=== PATIENT | female | born 1955 | race Caucasian/White ===

== ENCOUNTER 2022-09-26 16:57 | Observation (INO) | payer MEDICARE, BC, SELFPAY ==
--- NOTE | ~2022-09-26 | CT_ITS ---
EXAMINATION: CTA chest PE abdomen pel DATE: 09/26/2022 19:39 INDICATION: Localized chest pain. Lower abdominal pain. Abnormal liver enzymes. TECHNIQUE: Computed tomography (CT) pulmonary angiogram of the chest was performed with 100 mL Omnipa que-350 intravenous contrast. Additional 3D reconstructions utilizing coronal maximum intensity proje ction (MIP) were performed. CT of the abdomen and pelvis was performed with intravenous contrast util izing the same contrast bolus following a short delay. Automated exposure control and iterative recon struction technique were employed. The dose-length product was 430.32 mGy-cm. COMPARISON: None FINDINGS: Chest: Excellent contrast opacification of the pulmonary arteries. There is mild streak artifact from dense contrast in the superior vena cava and right atrium. Minimal scattered respiratory motion artifact wh ich does not significantly limit evaluation. No pulmonary embolism. Mild emphysema. There are regions of linear and thin bandlike consolidation with associated volume loss and architectural distortion i n the right upper, right middle and bilateral lower lobes most likely representing atelectasis/scarri ng. There is an additional small region of consolidation with adjacent groundglass opacities in the p osterolateral left upper lobe which is more suspicious for pneumonia. Alternatively this could repres ent the site of a reported small cell carcinoma of the left lung. There is a spiculated nodular opaci ty at the azygos esophageal recess of the right lower lobe for which differential would include malig nant, infectious or inflammatory etiologies. No pleural effusion. Heart size is normal. Atherosclerot ic coronary artery calcific lesion. Right internal jugular central venous catheter with distal tip ex tending to the superior cavoatrial junction. Thoracic aorta is normal in caliber with no dissection. No pathologically enlarged thoracic lymphadenopathy. Peripheral calcifications at bilateral breast im plants. Moderate thoracic spondylosis. No suspicious lytic or blastic bone lesions. Abdomen/pelvis: Cholecystectomy clips the gallbladder fossa. Liver, spleen, pancreas, bilateral adrenal glands are no rmal. There are small region of cortical thinning at both kidneys which could be related to prior inf ection or infarction. Bowels including the appendix are normal. Bladder is normal. The uterus is not identified and has likely been surgically resected. No free intraperitoneal gas or fluid. No patholog ically enlarged abdominal or pelvic lymphadenopathy. There is calcified atherosclerosis of the aorta and many of the other arteries. Mild lumbar spondylosis. No suspicious lytic or blastic bone lesions. IMPRESSION: 1. No pulmonary collision. 2. Mild emphysema with scattered bilateral lung disease, portions of which appear to represent atelec tasis but with additional region in the left upper lobe which is more concerning for pneumonia or pot entially representing the site of a reported treated lung cancer. 3. 1.5 cm spiculated nodule in the right lower lobe which could also be infectious, inflammatory or m alignant in etiology. Recommend correlation with any prior outside imaging. 4. No acute intra-abdominal/pelvic process. Reviewed, dictated and finalized at location A. IMPRESSION: 1. No pulmonary collision. 2. Mild emphysema with scattered bilateral lung disease, portions of which appe ar to represent atelectasis but with additional region in the left upper lobe w hich is more concerning for pneumonia or potentially representing the site of a reported treated lung cancer. 3. 1.5 cm spiculated nodule in the right lower lobe which could also be infecti ous, inflammatory or malignant in etiology. Recommend correlation with any prio r outside imaging. 4. No
--- NOTE | ~2022-09-26 | XR_ITS ---
EXAMINATION: XR chest 2V DATE: 09/26/2022 18:04 INDICATION: Chest pain TECHNIQUE: PA and lateral views of the chest were obtained. COMPARISON: Chest radiograph dated 12/27/2017 FINDINGS: Right internal jugular central venous port catheter with distal tip at the caudal superior vena cava. New linear opacities most likely representing discoid atelectasis in the right mid and left lower lion ng zones. More patchy airspace opacities in the right middle lobe also new since the prior study. No pulmonary edema, pleural effusion or pneumothorax. Heart size is normal. Peripherally calcified bilat eral breast implants. Cholecystectomy clips in the upper abdomen. IMPRESSION: 1. New patchy airspace opacities in the right middle lobe which could represent atelectasis or pneumo la nena. Reviewed, dictated and finalized at location A. IMPRESSION: 1. New patchy airspace opacities in the right middle lobe which could represent atelectasis or pneumonia.
--- NOTE | ~2022-09-26 | XR_ITS ---
EXAMINATION: XR chest 1V portable INDICATION: Shortness of breath TECHNIQUE: Portable AP chest at 0911 hours COMPARISON: 09/26/2022 FINDINGS: Airspace opacities of the right mid and lower lung zones persist with slight improvement. N o pleural effusion or pneumothorax. The cardiomediastinal silhouette is normal. A right internal jugu lar Port-A-Cath ends with its tip in the distal superior vena cava. Calcified bilateral breast implan ts are noted. Surgical clips in the right upper quadrant are likely from prior cholecystectomy. IMPRESSION: 1. Persistent but improving airspace opacities in the right mid and lower lung zones, likely infectio n/inflammation on a background of scarring/atelectasis. Reviewed, dictated and finalized at location A. IMPRESSION: 1. Persistent but improving airspace opacities in the right mid and lower lung zones, likely infection/inflammation on a background of scarring/atelectasis.
--- NOTE | 2022-09-26 16:59 | ECG_ITS ---
Measurements Intervals [place] Rate: 87 P: -79 OR: 89 QRS: 9 QRSD: 84 T: 47 QT: 370 QTc: 447 Interpretive Statements ECTOPIC ATRIAL RHYTHM FREQUENT ATRIAL PREMATURE COMPLEXES BASELINE ARTIFACT0 I, AVR, AVL, AVF, V1-V2 ABNORMAL ECG NO PREVIOUS ECG AVAILABLE FOR COMPARISON Electronically Signed On 09-26-2022 22:13:20 CDT by Cheko Mclean D.O.
--- NOTE | 2022-09-26 17:01 | ED.CHESTPAIN ---
HPI - Chest Pain General Chief Complaint: Chest Pain Stated Complaint: chest pain Time Seen by Provider: 09/26/22 17:00 Source: patient and family Mode of arrival: ambulatory Limitations: language barrier History of Present Illness HPI narrative: Patient is a 67 y/o female who presents to the ED with c/o CP. 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 Daughter at bedside assisted in providing patient's information. Patient is currently undergoing chemotherapy under Dr. Palma for small cell lung cancer of her left lung. She had a chemo treatment this morning which went as usual. She had outpatient labs drawn and received bad news about her liver enzymes being elevated. She is scheduled for a CT of her chest/abdomen/pelvis on 10/07. Patient was getting her nails done with her daughter approximately 1 hour ago when she began complaining of pain in her chest. Daughter reports she had difficulty ambulating to the car after their nail appointment and felt unsteady. They then decided to come to the ED. Patient is still currently having pain. She is unable to describe this pain or tell me if there is radiation of the pain. She does report having mild shortness of breath, but denies diaphoresis, nausea, vomiting. She does also report having pain across her lower abdomen. Denies fevers, cough, cold symptoms, lower extremity pain or swelling, focal weakness. Patient is on Eliquis due to history of atrial fibrillation and CVA. Related Data Home Medications Medication Instructions Recorded Confirmed albuterol sulfate 2.5 mg/3 mL 2.5 mg inhalation Q4H 07/31/22 09/26/22 (0.083 %) solution for nebulization apixaban 5 mg tablet (Eliquis) 5 mg PO BID 07/31/22 09/26/22 atorvastatin 80 mg tablet 80 mg PO DAILY 07/31/22 09/26/22 cyanocobalamin (vitamin B-12) 1,000 mcg PO DAILY 07/31/22 09/26/22 1,000 mcg tablet ferrous sulfate 325 mg (65 mg 325 mg PO DAILY 07/31/22 09/26/22 iron) tablet fluticasone propionate 50 1 spray intranasal DAILY PRN 07/31/22 09/26/22 mcg/actuation nasal Congestion spray,suspension folic acid 1 mg tablet 1 mg PO DAILY 07/31/22 09/26/22 metoprolol tartrate 25 mg tablet 25 mg PO BID 07/31/22 09/26/22 omeprazole 40 mg capsule,delayed 40 mg PO DAILY 07/31/22 09/26/22 release aspirin 81 mg capsule 81 mg PO DAILY 09/26/22 09/26/22 Allergies Allergy/AdvReac Type Severity Reaction Status Date / Time Penicillins AdvReac Unknown Nausea and Verified 09/26/22 23:42 Vomiting Review of Systems Review of Systems: CONSTITUTIONAL: Denies fever, chills, or sweats. ENT: Denies rhinorrhea, congestion, sore throat. CARDIOVASCULAR: See HPI. RESPIRATORY: See HPI. GASTROINTESTINAL: See HPI. GENITOURINARY: Denies dysuria or hematuria. SKIN: Denies rash or itching. MUSCULOSKELETAL: Denies back pain, joint pain, or myalgia. NEUROLOGIC: See HPI. All systems reviewed & are unremarkable except as noted in HPI and below PMFSH Past Medical History Medical History Atrial fibrillation CVA (cerebral vascular accident) GERD (gastroesophageal reflux disease) HTN (hypertension) Small cell lung cancer Surgical History Surgical History (Updated 09/26/22 @ 17:16 by Maria Guadalupe Ramirez PA-C) No pertinent past surgical history Social History Social History Smoking status: Former smoker Smoking end date: 05/11/22 Alcohol intake: never Substance use: never Lack of Transportation: No Lack of Food: Never True Current Housing: I Have Housing Concerned About Future Housing: No Difficulty Paying Gas/Electric Bills: No Difficulty Paying for Meds: No Currently Unemployed: No Education: Master's Degree or Higher Difficulty w/ Childcare or Family Care: No Spiritual care concerns: No Exam Narrative: GENERAL: Chronically ill, thin, non-toxic, in no acute distress. HEAD: Normocephalic, atraumatic. NECK: [place]
[2022-09-26 17:24] VITALS: BP 127/65; PULSE 82; RESP 18; TEMP 37.2; O2SAT 98
[2022-09-26 18:00] LABS: Basophils Absolute Auto 0.1 K/mm3 (0.0-0.1); Basophils Percent Auto 0.9 % (0.2-1.2); Eosinophils Absolute Auto 0.3 K/mm3 (0-0.3); Hematocrit 32.2 % (37.0-47.0); Hemoglobin 10.6 g/dL (12.0-15.0); Immature Granulocyte Absolute 0.18 K/mm3 (0.00-0.031); Immature Granulocyte Percent A 1.6 % (0-0.5); Lymphocytes Absolute Auto 0.94 K/mm3 (0.9-3.2); Lymphocytes Percent Auto 8.5 % (18.3-44.2); Mean Corpuscular HGB Conc 32.9 g/dl (32-36); Mean Corpuscular Hemoglobin 27.6 pg (26-34); Mean Corpuscular Volume 83.9 fl (80-100); Mean Platelet Volume 10.1 fl (7.4-10.4); Monocytes Absolute Auto 1.2 K/mm3 (0.1-0.6); Monocytes Percent Auto 10.6 % (2.6-8.5); Neutrophils Absolute Auto 8.3 K/mm3 (1.3-6.7); Neutrophils Percent Auto 75.4 % (45.5-73.1); Platelet Count Result 400 k/mm3 (150-375); Red Blood Count 3.84 M/mm3 (4.2-5.4); Red Cell Distribution Width 17.2 % (11.5-14.5)
[2022-09-26 18:10] LABS: INR 1.2; Prothrombin Time 16.3 Seconds (11.1-14.7)
[2022-09-26 18:11] LABS: Partial Thromboplastin Time 40.6 SECONDS (22.3-36.8)
[2022-09-26] MEDS: NITROGLYCERIN SL 0.4 MG TABLET SUBLINGUAL (18:13)
[2022-09-26] MEDS: ASPIRIN 81 MG CHEWABLE TABLET 324 MG PO (18:13)
[2022-09-26 18:22] LABS: Alanine Aminotransferase 470 U/L (6-35); Albumin Level 3.4 g/dL (3.5-5.1); Anion Gap 9 mmol/L (8-16); Bilirubin,Total 2.3 mg/dL (0.2-1.3); Blood Urea Nitrogen 13 mg/dL (7-17); Calcium 8.1 mg/dL (8.4-10.2); Carbon Dioxide 26 mmol/L (22-30); Chloride 100 mmol/L (98-107); Estimated Glomerular Filt Rate > 60; Glucose 109 mg/dL (65-110); Lipase 147 U/L (23-300); Potassium 3.1 mmol/L (3.4-5.0); Sodium 135 mmol/L (137-145)
[2022-09-26 18:27] LABS: Troponin I < 0.012 ng/mL (0.000-0.034)
[2022-09-26 19:11] LABS: Alkaline Phosphatase 1824 U/L (38-126); Aspartate Amino Transferase 759 U/L (14-36)
[2022-09-26 20:23] VITALS: BP 115/58; PULSE 84; RESP 25; O2SAT 100
[2022-09-26 20:27] LABS: Appearance Urine Clear (Clear); Bacteria Urine 1+ /hpf; Bilirubin Urine Negative (Negative); Blood Urine Negative (Negative); Color Urine Yellow (Yellow); Glucose Urine UA Negative (Negative); Ketones Urine Negative (Negative); Leukocyte Esterase Ur 2+ LEU/UL (Negative); Nitrate Urine Negative (Negative); Non Pathogenic Casts 0-2; Protein Urine Negative (Negative); RBC Urine 0-2 /hpf (0-2); Squamous Epithelial Cell Urine Moderate /hpf (Few); WBC Urine 21-50 /hpf; pH Urine 5.5 (5.0-9.0)
[2022-09-26 21:08] LABS: Specific Grav Ur 1.049 (1.001-1.035)
[2022-09-26 21:09] LABS: Add Urine Microscopic? YES
[2022-09-26 21:11] LABS: Troponin I < 0.012 ng/mL (0.000-0.034)
--- NOTE | 2022-09-26 21:14 | PM.IMHP ---
H&P: HPI History of Present Illness Date/Time: 09/26/22 21:14 Chief Complaint: Chest pain Narrative: This is a 67-year-old female with past medical history significant for small cell lung cancer, undergoing chemotherapy, stroke, aphasia, patient had chemotherapy treatment in the morning and had new onset chest pain was brought to the emergency room for evaluation where got nitroglycerin with relieve of pain. Most of the history was obtained from daughter who was at bedside and medical records of the time of my visit no family member was around patient is unable to give any meaningful history due to limitations secondary to aphasia. On outside lab work it was noted patient had abnormal liver function test as well. Preliminary workup was significant for urinalysis with numerous WBCs present, a CT angiogram of the chest showed area opacities. Patient has been admitted for further evaluation management and treatment. EXAMINATION: XR chest 2V DATE: 09/26/2022 18:04 INDICATION: Chest pain TECHNIQUE: PA and lateral views of the chest were obtained. COMPARISON: Chest radiograph dated 12/27/2017 FINDINGS: Right internal jugular central venous port catheter with distal tip at the caudal superior vena cava. New linear opacities most likely representing discoid atelectasis in the right mid and left lower lung zones. More patchy airspace opacities in the right middle lobe also new since the prior study. No pulmonary edema, pleural effusion or pneumothorax. Heart size is normal. Peripherally calcified bilateral breast implants. Cholecystectomy clips in the upper abdomen. IMPRESSION: 1. New patchy airspace opacities in the right middle lobe which could represent atelectasis or pneumonia. EXAMINATION: CTA chest PE abdomen pel DATE: 09/26/2022 19:39 INDICATION: Localized chest pain. Lower abdominal pain. Abnormal liver enzymes. TECHNIQUE: Computed tomography (CT) pulmonary angiogram of the chest was performed with 100 mL Omnipaque-350 intravenous contrast. Additional 3D reconstructions utilizing coronal maximum intensity projection (MIP) were performed. CT of the abdomen and pelvis was performed with intravenous contrast utilizing the same contrast bolus following a short delay. Automated exposure control and iterative reconstruction technique were employed. The dose-length product was 430.32 mGy-cm. COMPARISON: None FINDINGS: Chest: Excellent contrast opacification of the pulmonary arteries. There is mild streak artifact from dense contrast in the superior vena cava and right atrium. Minimal scattered respiratory motion artifact which does not significantly limit evaluation. No pulmonary embolism. Mild emphysema. There are regions of linear and thin bandlike consolidation with associated volume loss and architectural distortion in the right upper, right middle and bilateral lower lobes most likely representing atelectasis/scarring. There is an additional small region of consolidation with adjacent groundglass opacities in the posterolateral left upper lobe which is more suspicious for pneumonia. Alternatively this could represent the site of a reported small cell carcinoma of the left lung. There is a spiculated nodular opacity at the azygos esophageal recess of the right lower lobe for which differential would include malignant, infectious or inflammatory etiologies. No pleural effusion. Heart size is normal. Atherosclerotic coronary artery calcific lesion. Right internal jugular central venous catheter with distal tip extending to the superior cavoatrial junction. Thoracic aorta is normal in caliber with no dissection. No pathologically enlarged thoracic lymphadenopathy. Peripheral calcifications at bilateral breast implants. Moderate thoracic spondylosis. No suspicious lytic or blastic bone lesions. Abdomen/pelvis: Cholecystectomy clips the gallbladder fossa. Liver, spleen, pancreas, bilateral adrenal glands are normal. There are small region of paulina
[2022-09-26] MEDS: CEFEPIME 2 GM/NS 50 ML 2 GM/50 ML BAG IVPB (21:23)
[2022-09-26] MEDS: POTASSIUM CHLORIDE INJ 40 MEQ in SODIUM CHLORIDE 0.9% IV 500 ML 130 MEQ IVPB (21:48)
[2022-09-26 22:03] VITALS: BP 107/76; PULSE 93; RESP 16; O2SAT 97
[2022-09-26 22:36] VITALS: BP 107/65; PULSE 84; RESP 16; O2SAT 97
--- NOTE | 2022-09-26 22:49 | PC.NURSE ---
PT MEDICATION LIST PROVIDED VIA PHONE FROM CON[facility] HARTMAN.
[2022-09-26 22:55] VITALS: BP 136/54; PULSE 85; RESP 18; TEMP 36.7; O2SAT 97; BMI 20.4
--- NOTE | 2022-09-26 22:56 | ADMGEN ---
This patient, Marci Kelly, was admitted to Medical Room 254-01. Patient/family oriented to hospital policies and general routines including ID bracelet, bed and alarms, visiting hours, pain management, procedures, bathroom and other care routines, personal items, smoking policy, room service/diet, and visiting hours. Information on how to activate the Rapid Response Team has been discussed. Patient/Family are encouraged to report perceived risks to care and to ask questions if they do not understand what they are told or what they should do.
[2022-09-26] MEDS: VANCOMYCIN 1,250 MG/NS 250 ML 1,250 MG/250 ML BAG 166.67 MG IVPB (23:05)
[2022-09-26 23:29] LABS: Troponin I < 0.012 ng/mL (0.000-0.034)
[2022-09-27] VITALS (14 sets, daily range): BP systolic 114–132; BP diastolic 60–73; PULSE 73–92; RESP 14–18; TEMP 37.1–37.2; O2SAT 98–100
[2022-09-27 05:23] LABS: Basophils Absolute Auto 0.1 K/mm3 (0.0-0.1); Basophils Percent Auto 1.1 % (0.2-1.2); Eosinophils Absolute Auto 0.4 K/mm3 (0-0.3); Eosinophils Percent Auto 5.6 % (0-4.4); Hematocrit 28.3 % (37.0-47.0); Hemoglobin 9.1 g/dL (12.0-15.0); Immature Granulocyte Absolute 0.12 K/mm3 (0.00-0.031); Immature Granulocyte Percent A 1.5 % (0-0.5); Lymphocytes Absolute Auto 0.73 K/mm3 (0.9-3.2); Lymphocytes Percent Auto 9.3 % (18.3-44.2); Mean Corpuscular HGB Conc 32.2 g/dl (32-36); Mean Corpuscular Hemoglobin 27.1 pg (26-34); Mean Corpuscular Volume 84.2 fl (80-100); Mean Platelet Volume 10.5 fl (7.4-10.4); Monocytes Absolute Auto 0.9 K/mm3 (0.1-0.6); Monocytes Percent Auto 10.9 % (2.6-8.5); Neutrophils Absolute Auto 5.6 K/mm3 (1.3-6.7); Neutrophils Percent Auto 71.6 % (45.5-73.1); Platelet Count Result 344 k/mm3 (150-375); Red Blood Count 3.36 M/mm3 (4.2-5.4); Red Cell Distribution Width 17.2 % (11.5-14.5); White Blood Count 7.9 K/mm3 (4.5-10.0)
[2022-09-27] MEDS: CENTRAL LINE FLUSH 10 ML IV PUSH ×3 (05:32→20:39)
[2022-09-27 05:34] LABS: Anion Gap 8 mmol/L (8-16); Blood Urea Nitrogen 11 mg/dL (7-17); Calcium 7.9 mg/dL (8.4-10.2); Carbon Dioxide 22 mmol/L (22-30); Chloride 105 mmol/L (98-107); Estimated CRCL calculation 66 ml/min; Estimated Glomerular Filt Rate > 60; Glucose 98 mg/dL (65-110); Potassium 3.8 mmol/L (3.4-5.0); Sodium 135 mmol/L (137-145)
--- NOTE | 2022-09-27 07:51 | PM.IMPN ---
Progress Note: A&P Assessment and Plan (1) Pneumonia: Qualifiers: Laterality: bilateral Lung location: unspecified part of lung Pneumonia type: due to unspecified organism Qualified Code(s): J18.9 - Pneumonia, unspecified organism Code(s): J18.9 - Pneumonia, unspecified organism Status: Acute Assessment and Plan: CTA showed edema vs pna, obvious old lung cancer scarring noted started in vanc + cefepime 09/26 hold off on lasix for now (2) UTI (urinary tract infection): Qualifiers: Hematuria presence: without hematuria Urinary tract infection type: acute cystitis Qualified Code(s): N30.00 - Acute cystitis without hematuria Code(s): N39.0 - Urinary tract infection, site not specified Status: Acute Assessment and Plan: await cultures (3) Atypical chest pain: Code(s): R07.89 - Other chest pain Status: Acute Assessment and Plan: Do not suspect cardiac etiology, trend troponin, monitor telemetry (4) GERD (gastroesophageal reflux disease): Code(s): K21.9 - Gastro-esophageal reflux disease without esophagitis Status: Acute Assessment and Plan: PPI (5) HTN (hypertension): Code(s): I10 - Essential (primary) hypertension Status: Acute Assessment and Plan: Blood pressures reviewed 09/27 Continue home antihypertensives (6) Atrial fibrillation: Code(s): I48.91 - Unspecified atrial fibrillation Status: Acute Assessment and Plan: Rate controlled, anticoagulated with Eliquis (7) Small cell lung cancer: Code(s): C34.90 - Malignant neoplasm of unspecified part of unspecified bronchus or lung Status: Acute Assessment and Plan: undergoing chemotherapy follow-up in outpatient setting (8) Abnormal LFTs: Code(s): R79.89 - Other specified abnormal findings of blood chemistry Status: Acute Assessment and Plan: likely secondary to chemotherapy toxicity continue to monitor Plan DVT prophylaxis with eliquis GI prophylaxis with PPI Code status full code Subjective Date/time seen: 09/27/22 07:51 Interval history: 67-year-old female with history of small cell lung cancer currently being treated with chemotherapy and a history of a stroke with residual aphasia is presenting with chest pain, currently being treated for possible pneumonia and UTI. No overnight events noted. No chest pain or shortness of breath. No nausea, vomiting or diarrhea. No fevers or chills. Review of Systems Review of Systems: 12 point review of systems was assessed and was negative except as noted in the HPI Exam Narrative: General: No acute distress, alert and oriented per baseline HEENT: Atraumatic, normocephalic, mucous membranes moist CV: Regular rate and rhythm, S1, S2 Lungs: Clear to auscultation bilaterally, no rales or crackles noted, no wheezes, good air entry Abdomen: Soft, nontender, nondistended Extremities: Normal to inspection Skin: No rashes noted, no lesions or wounds seen Psych: Euthymic, normal affect Objective Data Vital Signs Vital Signs: Vital Signs - 24 hr 09/26/22 17:24 09/26/22 20:23 09/26/22 22:03 Temperature 99.0 F Pulse Rate 82 84 93 Respiratory Rate 18 25 H 16 Blood Pressure 127/65 115/58 L 107/76 Pulse Oximetry 98 100 97 Oxygen Delivery Room Air 09/26/22 22:36 09/26/22 22:55 09/27/22 00:00 Temperature 98.1 F Pulse Rate 84 85 81 Respiratory Rate 16 18 Blood Pressure 107/65 136/54 L Pulse Oximetry 97 97 Oxygen Delivery 09/27/22 04:00 09/27/22 05:23 Temperature 99 F Pulse Rate 83 84 Respiratory Rate 18 Blood Pressure 121/60 Pulse Oximetry 98 Oxygen Delivery Intake/Output Intake/Output: Intake & Output 09/24/22 09/25/22 09/26/22 09/27/22 23:59 23:59 23:59 23:59 Intake Total 50 920 Balance 50 920 Meds/Results
[2022-09-27] MEDS: CEFEPIME 2 GM/NS 50 ML 2 GM/50 ML BAG IVPB ×2 (08:35→20:39)
[2022-09-27] MEDS: ALBUTEROL SULFATE NEB 2.5 MG/3 ML INH INHALATION ×2 (12:44→18:13)
[2022-09-27] MEDS: METOPROLOL TARTRATE 25 MG TABLET PO (18:12)
[2022-09-27] MEDS: APIXABAN 5 MG TABLET PO (18:12)
[2022-09-27] MEDS: PANTOPRAZOLE 40 MG TABLET PO (18:12)
[2022-09-27] MEDS: VANCOMYCIN 1,000 MG/NS 250 ML 1,000 MG/250 ML BAG 250 MG IVPB (18:18)
[2022-09-28] VITALS (11 sets, daily range): BP systolic 117; BP diastolic 54; PULSE 78–109; RESP 16; TEMP 36.6; O2SAT 96
[2022-09-28] MEDS: ALBUTEROL SULFATE NEB 2.5 MG/3 ML INH INHALATION ×3 (01:43→07:45)
[2022-09-28] MEDS: CENTRAL LINE FLUSH 10 ML IV PUSH (05:30)
[2022-09-28 05:40] LABS: Basophils Absolute Auto 0.1 K/mm3 (0.0-0.1); Basophils Percent Auto 0.9 % (0.2-1.2); Eosinophils Absolute Auto 0.4 K/mm3 (0-0.3); Eosinophils Percent Auto 4.2 % (0-4.4); Hematocrit 30.2 % (37.0-47.0); Hemoglobin 9.8 g/dL (12.0-15.0); Immature Granulocyte Absolute 0.14 K/mm3 (0.00-0.031); Immature Granulocyte Percent A 1.6 % (0-0.5); Lymphocytes Percent Auto 12.5 % (18.3-44.2); Mean Corpuscular HGB Conc 32.5 g/dl (32-36); Mean Corpuscular Volume 83.2 fl (80-100); Mean Platelet Volume 10.7 fl (7.4-10.4); Monocytes Absolute Auto 0.8 K/mm3 (0.1-0.6); Monocytes Percent Auto 9.3 % (2.6-8.5); Neutrophils Absolute Auto 6.3 K/mm3 (1.3-6.7); Neutrophils Percent Auto 71.5 % (45.5-73.1); Platelet Count Result 359 k/mm3 (150-375); Red Blood Count 3.63 M/mm3 (4.2-5.4); Red Cell Distribution Width 17.5 % (11.5-14.5); White Blood Count 8.8 K/mm3 (4.5-10.0)
[2022-09-28 05:51] LABS: Alanine Aminotransferase 549 U/L (6-35); Albumin Level 2.9 g/dL (3.5-5.1); Alkaline Phosphatase 1486 U/L (38-126); Anion Gap 5 mmol/L (8-16); Bilirubin,Total 2.6 mg/dL (0.2-1.3); Blood Urea Nitrogen 11 mg/dL (7-17); Carbon Dioxide 27 mmol/L (22-30); Chloride 105 mmol/L (98-107); Estimated CRCL calculation 57 ml/min; Estimated Glomerular Filt Rate > 60; Glucose 107 mg/dL (65-110); Potassium 3.4 mmol/L (3.4-5.0); Sodium 137 mmol/L (137-145)
[2022-09-28 06:02] LABS: Aspartate Amino Transferase 1040 U/L (14-36)
[2022-09-28] MEDS: CEFEPIME 2 GM/NS 50 ML 2 GM/50 ML BAG IVPB (08:36)
[2022-09-28] MEDS: METOPROLOL TARTRATE 25 MG TABLET PO (08:39)
[2022-09-28] MEDS: FERROUS SULFATE 324 MG TABLET PO (08:39)
[2022-09-28] MEDS: ASPIRIN 81 MG CHEWABLE TABLET PO (08:39)
[2022-09-28] MEDS: PANTOPRAZOLE 40 MG TABLET PO (08:39)
[2022-09-28] MEDS: CYANOCOBALAMIN 1,000 MCG TABLET 1000 MCG PO (08:39)
[2022-09-28] MEDS: FOLIC ACID 1 MG TABLET PO (08:39)
[2022-09-28] MEDS: ATORVASTATIN 40 MG TABLET 80 MG PO (08:39)
[2022-09-28] MEDS: APIXABAN 5 MG TABLET PO (08:39)
--- NOTE | 2022-09-28 09:00 | PM.DS ---
DS: Admitting Diagnosis Discharge Date 09/28/22 Admitting Diagnosis sob DS: Discharge Diagnosis Discharge Diagnosis (1) Pneumonia: Qualifiers: Laterality: bilateral Lung location: unspecified part of lung Pneumonia type: due to unspecified organism Qualified Code(s): J18.9 - Pneumonia, unspecified organism Code(s): J18.9 - Pneumonia, unspecified organism Status: Acute Assessment and Plan: CTA showed edema vs pna, obvious old lung cancer scarring noted started in vanc + cefepime 09/26 hold off on lasix for now (2) UTI (urinary tract infection): Qualifiers: Hematuria presence: without hematuria Urinary tract infection type: acute cystitis Qualified Code(s): N30.00 - Acute cystitis without hematuria Code(s): N39.0 - Urinary tract infection, site not specified Status: Acute Assessment and Plan: await cultures (3) Atypical chest pain: Code(s): R07.89 - Other chest pain Status: Acute Assessment and Plan: Do not suspect cardiac etiology, trend troponin, monitor telemetry (4) GERD (gastroesophageal reflux disease): Code(s): K21.9 - Gastro-esophageal reflux disease without esophagitis Status: Acute Assessment and Plan: PPI (5) HTN (hypertension): Code(s): I10 - Essential (primary) hypertension Status: Acute Assessment and Plan: Blood pressures reviewed 09/27 Continue home antihypertensives (6) Atrial fibrillation: Code(s): I48.91 - Unspecified atrial fibrillation Status: Acute Assessment and Plan: Rate controlled, anticoagulated with Eliquis (7) Small cell lung cancer: Code(s): C34.90 - Malignant neoplasm of unspecified part of unspecified bronchus or lung Status: Acute Assessment and Plan: undergoing chemotherapy follow-up in outpatient setting (8) Abnormal LFTs: Code(s): R79.89 - Other specified abnormal findings of blood chemistry Status: Acute Assessment and Plan: likely secondary to chemotherapy toxicity continue to monitor Plan DVT prophylaxis with eliquis GI prophylaxis with PPI Code status full code DS: Summary Hospital Course Hospital Course: 67-year-old female with history of small cell lung cancer currently undergoing chemotherapy, stroke with expressive aphasia is presenting with chest pain. She was found to have pneumonia and started antibiotics. Troponin was negative x3. Chest pain completely resolved and did not recur. She was discharged in stable condition on antibiotics with close outpatient follow-up. Please see above and med rec for details. Time Spent with Patient Time attestation: Total time spent providing and/or coordinating discharge services: Exam Narrative: General: No acute distress, alert and oriented per baseline HEENT: Atraumatic, normocephalic, mucous membranes moist CV: Regular rate and rhythm, S1, S2 Lungs: Clear to auscultation bilaterally, no rales or crackles noted, no wheezes, good air entry Abdomen: Soft, nontender, nondistended Extremities: Normal to inspection Skin: No rashes noted, no lesions or wounds seen Psych: Euthymic, normal affect DS: Data Data Completed and Pending Labs on day of discharge: Labs from last 24 hours 09/28/22 05:29 WBC 8.8 RBC 3.63 L Hgb 9.8 L Hct 30.2 L MCV 83.2 MCH 27.0 MCHC 32.5 RDW 17.5 H Plt Count 359 MPV 10.7 H Immature Gran % (Auto) 1.6 H Neut % (Auto) 71.5 Lymph % (Auto) 12.5 L Ocean % (Auto) 9.3 H Eos % (Auto) 4.2 Baso % (Auto) 0.9 Lymph # (Auto) 1.10 Ocean # (Auto) 0.8 H Eos # (Auto) 0.4 H Baso # (Auto) 0.1 Abs Immat Gran (auto) 0.14 H Absolute Neuts (auto) 6.3 Absolute Nucleated RBC 0.0 Nucleated RBC % 0.0 Sodium 137 Potassium 3.4 Chloride 105 Carbon Dioxide 27 Anion Gap 5 L BUN 11 Creatinine 0.70 Estim Creat Clear Calc 5
[2022-09-28] MEDS: levoFLOXacin 750 MG TABLET PO (11:29)
== END 2022-09-28 11:42 | disposition home or self-care (01) ==
LOC: ANHED 21:18 → ANH2MED 23:27
PROVIDERS: Emergency Medicine; Admitting Provider Internal Medicine; Emergency Provider Physician Assistant; PCP Family Medicine; Visit Provider Student in an Organized Health Care Education/Training Program
DX: J18.9 Pneumonia, unspecified organism (principal); N30.00 Acute cystitis without hematuria; R07.89 Other chest pain; K21.9 Gastro-esophageal reflux disease without esophagitis; I10 Essential (primary) hypertension; I48.91 Unspecified atrial fibrillation; C34.92 Malignant neoplasm of unspecified part of left bronchus or lung; R79.89 Other specified abnormal findings of blood chemistry; R74.01 Elevation of levels of liver transaminase levels; J43.9 Emphysema, unspecified; E87.6 Hypokalemia; R94.31 Abnormal electrocardiogram [ECG] [EKG]; E80.6 Other disorders of bilirubin metabolism; R91.1 Solitary pulmonary nodule; Z87.891 Personal history of nicotine dependence; I69.320 Aphasia following cerebral infarction; Z79.01 Long term (current) use of anticoagulants; Z79.60 Long term (current) use of unspecified immunomodulators and immunosuppressants; Z79.51 Long term (current) use of inhaled steroids; Z79.82 Long term (current) use of aspirin; Z79.899 Other long term (current) drug therapy
CPT/HCPCS: 36415; 71045; 71046; 71275; 74177; 80047; 80048; 80053; 81001; 82607; 82728; 83540; 83550; 83690; 84443; 84484; 85025; 85610; 85730; 87081; 87086; 87088; 93005; 94640; 96365; 96366; 96367; 96368; 96413; 99285; A9270; G0378; J0692; J1642; J3370; J3480; J7040; J9299; Q9967